=== PATIENT | male | born 1950 | race Caucasian/White ===

== ENCOUNTER 2016-10-28 07:03 | Day surgery (SDC) | payer MEDICARE, BC ==
[2016-10-28] MEDS ORDERED: Sodium Chloride 0.9% 10 ML Syringe FLUSH PRN (07:15)
[2016-10-28] MEDS ORDERED: Lactated Ringers 1,000 ML IV SCH (07:15)
[2016-10-28] MEDS ORDERED: Midazolam 1 MG/ML 2 ML SDV IV ONE (09:00)
[2016-10-28] MEDS ORDERED: Propofol 200 MG/20 ML SDV IV ONE (09:00)
--- NOTE | 2016-10-28 09:31 | PCM.OPNOTE ---
- General Post-Op/Procedure Note Date of Surgery/Procedure: 10/28/16 Operative Procedure(s): c scope with bx Findings: rectal polyp internal hemorrhoids Pre Op Diagnosis: rectal bleeding Post-Op Diagnosis: rectal polyp/ internal hemorrhoids Anesthesia Technique: MAC Primary Surgeon: Leland Norris Anesthesia Provider: Lachelle Jenkins Pathology: rectal polyp Complications: None Condition: Good Free Text/Narrative:: see dictation
[2016-10-28 10:17] VITALS: BP 133/81
--- NOTE | 2016-10-28 15:18 | OR ---
DATE OF OPERATION: 10/28/2016 SURGEON: Leland Norris MD PROCEDURE PERFORMED: Colonoscopy with cold forceps biopsy. PREOPERATIVE DIAGNOSIS: Bleeding per rectum. POSTOPERATIVE DIAGNOSIS: Rectal polyp and internal hemorrhoids. INDICATIONS FOR PROCEDURE: This is a 66-year-old white male, who was referred with a history of bleeding per rectum. He was offered and accepted colonoscopy. DESCRIPTION OF OPERATION: After an excellent IV sedation was administered, digital rectal exam was performed. No marked abnormality was noted. The flexible colonoscope was inserted and advanced to the cecum. The prep was excellent. The following findings were noted. Ascending colon, unremarkable. Transverse colon, unremarkable. Descending colon, unremarkable. Sigmoid, unremarkable. Rectum; at the proximal rectum, a small polypoid lesion, biopsied with cold biopsy forceps. On retroflexion of the scope, the patient has evidence of internal hemorrhoids which appears to be the presumed cause of his bleeding. The colon was deflated. The scope was removed. The patient tolerated the procedure well and was taken to recovery in good condition. /[id number] /MODL
== END 2016-10-28 10:24 | disposition home or self-care (01) ==
LOC: FB.SDS 07:03
PROVIDERS: ATTEND Surgery
DX: K62.1 Rectal polyp (principal); K64.8 Other hemorrhoids; I10 Essential (primary) hypertension; E11.9 Type 2 diabetes mellitus without complications; E78.5 Hyperlipidemia, unspecified; Z79.84 Long term (current) use of oral hypoglycemic drugs; Z79.899 Other long term (current) drug therapy; Z79.82 Long term (current) use of aspirin; Z87.891 Personal history of nicotine dependence
CPT/HCPCS: 00810; 45380; 82962; 88305; J2250; J2704; J7120

== ENCOUNTER 2024-01-02 19:09 | Emergency (ER) | payer MEDICARE, OTHER ==
[2024-01-02 19:32] VITALS: BP 143/64; PULSE 95
[2024-01-02] MEDS: Magnesium Citrate Solution 296 ML Bottle PO ONE (19:44)
== END 2024-01-02 19:57 | disposition home or self-care (01) ==
LOC: FB.ED 19:09
DX: K59.00 Constipation, unspecified (principal); I10 Essential (primary) hypertension; E78.00 Pure hypercholesterolemia, unspecified; E11.9 Type 2 diabetes mellitus without complications; Z90.49 Acquired absence of other specified parts of digestive tract; Z79.899 Other long term (current) drug therapy; Z79.82 Long term (current) use of aspirin; Z79.84 Long term (current) use of oral hypoglycemic drugs
CPT/HCPCS: 99283; A9270